=== PATIENT | male | born 1950 | race Caucasian/White ===

== ENCOUNTER 2020-06-29 08:07 | Inpatient (IN) | payer BC ==
[~2020-06-29] VITALS: Ht 175.3 cm; Wt 120.0 kg
[2020-06-29] MEDS ORDERED: JANU100T PO (08:21)
[2020-06-29] MEDS ORDERED: BRIM0.2S13 OU (08:21)
[2020-06-29] MEDS ORDERED: METO1TAB7 PO (08:21)
[2020-06-29] MEDS ORDERED: METF10004 PO (08:21)
[2020-06-29] MEDS ORDERED: FURO20TA2 PO (08:21)
[2020-06-29] MEDS ORDERED: DORZ2SOL4 OU (08:21)
--- NOTE | 2020-06-29 09:06 | REP ---
INDICATION: CVA - Nursing interventions must not delay CT. COMPARISON: None. TECHNIQUE: Axial CT images with multiplanar reformations. FINDINGS: No acute bleed or acute large vessel territorial infarct. Ventricles, cisterns and sulci are within normal limits. No mass effect or midline shift. No abnormal fluid collections. Scattered ill-defined hypodensities seen throughout the white matter is most consistent with sequelae of chronic microvascular ischemic disease. Paranasal sinuses and mastoid air cells are clear. IMPRESSION: No acute findings. <Electronically signed by Ilir Joel > 06/29/20 [id number]
[2020-06-29 09:11] LABS: BASO # 0.1 10^3/uL (0.0-0.2); EOS # 0.4 10^3/uL (0.0-0.5); EOS % 5.1 % (0.0-3.0); HEMATOCRIT 43.2 % (42.0-52.0); HEMOGLOBIN 14.2 g/dl (13.5-17.5); LYMPH % 24.1 % (24.0-44.0); MEAN CORPUSCULAR HEMOGLOBIN 29.2 pg (27.0-33.0); MEAN CORPUSCULAR HGB CONC 32.9 g/dl (32.0-36.5); MEAN CORPUSCULAR VOLUME 88.7 fl (80.0-96.0); MONO # 0.6 10^3/uL (0.0-0.8); MONO % 6.7 % (2.0-8.0); NEUTROPHILS # 5.3 10^3/uL (1.5-8.5); NEUTROPHILS % 62.6 % (36.0-66.0); PLATELET COUNT, AUTOMATED 251 10^3/uL (150-450); RED BLOOD COUNT 4.87 10^6/uL (4.30-6.10); WHITE BLOOD COUNT 8.4 10^3/uL (4.0-10.0)
[2020-06-29 11:03] LABS: INR 0.95; PROTHROMBIN TIME 12.9 SECONDS (12.5-14.3)
[2020-06-29 11:36] LABS: ALBUMIN 3.3 GM/DL (3.2-5.2); BILIRUBIN,DIRECT 0.1 MG/DL (0.0-0.2); BILIRUBIN,TOTAL 0.5 MG/DL (0.2-1.0)
--- NOTE | 2020-06-29 12:29 | REP ---
INDICATION: ataxia. COMPARISON: None. TECHNIQUE: Axial T1, T2, FLAIR, gradient echo, and diffusion-weighted MR images of the brain are obtained. FINDINGS: There are scattered punctate foci of restricted diffusion in the bilateral cerebellar hemispheres, greater on the right. No hemorrhage. Ventricles, cisterns and sulci are within normal limits. No mass effect or midline shift. No abnormal fluid collections. Paranasal sinuses and mastoid air cells are clear. IMPRESSION: A number of [id number] infarcts are seen in the cerebellar hemispheres, greater inferiorly and greater on the right. No mass effect or hemorrhage. Findings discussed with Dr. Benites in the emergency department at the time of interpretation. <Electronically signed by Ilir Joel > 06/29/20 [id number]
--- NOTE | 2020-06-29 12:30 | REP ---
INDICATION: ataxia. COMPARISON: None. TECHNIQUE: [id number] MRA of the brain. FINDINGS: The vertebral arteries are attenuated, not seen on the left and only minimally seen on the right. The right vertebral artery gives rise to the basilar artery which is significantly attenuated. applications trainer are present bilaterally. On the right the internal carotid artery narrows as it enters the cavernous sinus. Proximal and distal MCA branches appear unremarkable on the right. A1 segment absent on the right. On the left the internal carotid artery appears somewhat tortuous but patent. The left internal carotid artery, MCA and MCA branches appear unremarkable. A1 segments and ANDRZEJ branches are present on the left. IMPRESSION: Attenuated posterior vasculature, the basilar artery not well demonstrated and the left vertebral artery not well demonstrated. Anterior circulation demonstrates anatomic variation and a stenosis on the right as the internal carotid artery enters the cavernous sinus. Findings discussed with Dr. Benites in the emergency department at the time of interpretation. <Electronically signed by Ilir Joel > 06/29/20 [id number]
[2020-06-29] MEDS ORDERED: ISOVUE-370 76% 100ML VIAL As Ordered ONE (12:55)
[2020-06-29 13:34] LABS: RSV AMPLIFICATION NEGATIVE (NEGATIVE)
[2020-06-29] MEDS ORDERED: ALEV220T22 PO (13:40)
[2020-06-29] MEDS ORDERED: IRBE300T7 PO (13:40)
[2020-06-29] MEDS ORDERED: VITMTA PO (13:40)
[2020-06-29] MEDS ORDERED: **hydrALAZINE HCL** 25 MG TAB PO PRN (14:00)
[2020-06-29] MEDS ORDERED: GLUCOSE 4GM CHEW TABLET PO PRN (14:00)
[2020-06-29] MEDS ORDERED: DEXTROSE 50% 50 ML SYRINGE IV PRN (14:00)
[2020-06-29] MEDS ORDERED: GLUCAGON INJ 1MG VIAL SC PRN (14:00)
--- NOTE | 2020-06-29 14:23 | REP ---
INDICATION: cva. COMPARISON: MRA of the brain, 06/29/2020. TECHNIQUE: Axial CT images with multiplanar reformations with contrast FINDINGS: As noted on CTA of the neck, the posterior circulation is extremely small with atherosclerotic changes of the vertebral arteries as they enter the foramen magnum. The basilar artery is extremely attenuated and camera tuning engineer appear to fill at least in part from the anterior circulation through posterior communicating arteries. The anterior circulation appears unremarkable. Internal carotid arteries, proximal and distal MCA branches, A1 segments and ANDRZEJ branches appear unremarkable. A stenosis of the right internal carotid artery as it enters the cavernous sinus is better illustrated on the MRI study however is demonstrated on the CTA 3D subtracted reconstruction images. IMPRESSION: Extremely attenuated posterior circulation. The vertebral arteries demonstrate atherosclerotic narrowing as they enter the foramen magnum and the basilar artery is extremely attenuated from this level to the basilar tip. camera tuning engineer appear to fill at least in part from the anterior circulation through small P comms. 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 <Electronically signed by Ilir Joel > 06/29/20 [id number]
--- NOTE | 2020-06-29 14:26 | REP ---
INDICATION: CVA COMPARISON: MRA of the brain, 06/29/2020. TECHNIQUE: Axial CT with multiplanar reformations with contrast. FINDINGS: Anterior circulation: On the right, the common and internal carotid arteries are widely patent. On the left, common and internal carotid arteries are widely patent. There is a small amount atherosclerotic calcification at the carotid bifurcation. Posterior circulation: The vertebral arteries are small bilaterally, and there is atherosclerotic change as they enter the foramen magnum. The basilar artery is extremely small and contrast did minimally opacifies the upper portion of the basilar artery. There are trace posterior communication vessels and the signal mechanic are present bilaterally. IMPRESSION: Anterior circulation appears normal. Posterior circulation is severely attenuated, and the basilar artery is minimally visible. There are attenuated P comms bilaterally, may contribute to the filling of the signal mechanic. This may represent a congenital variation now with atherosclerotic disease further narrowing the posterior circulation system. <Electronically signed by Iilr Joel > 06/29/20 [id number]
[2020-06-29] MEDS ORDERED: ACETAMINOPHEN TAB 650MG DOSE (2X325MG) PO PRN (14:35)
--- NOTE | 2020-06-29 15:15 | HPEPDOC ---
General Date of Admission Jun 29, 2020 Date of Service: Jun 29, 2020 Chief Complaint The patient is a 69-year-old male admitted with a reason for visit of Ear Problem. Source: Patient History of Present Illness Mr. Huber is a 69 year old male with diabetes mellitus type 2 and hypertension who presents with stroke like symptoms. Yesterday, he felt okay. That evening, he had ear fullness. He thought it was 2/2 ear wax and took ear drops. Around 5AM, his ears were still full and could not hear, but he had poor balance. It felt like he was drunk and his vision blurred. did not notice any slurred speech. He tried to put on pants, but it was too difficult. They de cided to go to the ED. When he arrived to the ED, his symptoms completely resolved. He had an NIH score of 0. CT head was negative, but MRI demonstrated multiple acute to subacute infarcts in the cerebellar hemispheres. In the ED, CT angio of the head and neck was ordered for description of the severity of the stenosis seen on MRA. Otherwise, when I saw the patient, he denies any fever/chills, chest pain, dyspnea, or abdominal pain. He had a headache after the MRI. Otherwise, while in the ED, he had two episodes of slurred speech and perioral numbness which lasted a few minutes. These events were a few hours apart. On examination, CN 3-12 grossly intact, finger to nose intact, and negative pronator drift. 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 Home Medications Scheduled Brimonidine Tartrate (Brimonidine Tartrate) 0.2% 5ML Drops, 1 DROP OU BID, (Reported) Dorzolamide HCl (Dorzolamide HCl) 2% 10ML Drops, 1 DROP OU BID, (Reported) Furosemide (Furosemide) 20 Mg Tablet, 20 MG PO DAILY, (Reported) Irbesartan (Irbesartan) 300 Mg Tablet, 300 MG PO DAILY, (Reported) Metformin HCl (Metformin HCl) 1,000 Mg Tablet, 1,000 MG PO BID, (Reported) Metoprolol Succinate (Metoprolol Succinate) 50 Mg Tab.er.24h, 50 MG PO QHS, (Reported) Multivitamins (Thera M Plus Tablet) 1 Each Tablet, 1 TAB PO DAILY, (Reported) Naproxen Sodium (Aleve) 220 Mg Tablet, 220 MG PO DAILY, (Reported) Sitagliptin Phosphate (Januvia) 100 Mg Tablet, 100 MG PO QHS, (Reported) Allergies Coded Allergies: Sulfa (Sulfonamide Antibiotics) (Verified Allergy, Unknown, 06/29/20) atorvastatin (Verified Allergy, Unknown, 06/29/20) Past Medical History Medical History 1. Diabetes mellitus type 2 2. Hypertension 3. Arthritis of the knees 4. Glaucoma 5. Cataracts Surgical History 1. Right knee meniscus repair 2. Bilateral cataracts removed Family History Father: History of heart disease Mother: History of diabetes, heart disease Social History * Smoker: former Smoker (Quit in 1998 (22 years ago)) Alcohol: rarely Drugs: denies A-FIB/CHADSVASC A-FIB History Current/History of A-Fib/PAF?: No Review of Systems Constitutional: Denies: Chills, Fever Eyes: Reports: Vision change (Intermittent blurry vision during stroke) ENT: Reports: Head Aches; Denies: Sore Throat Skin: Denies: Rash Pulmonary: Denies: Dyspnea, Cough Cardiovascular: Denies: Chest Pain Gastrointestinal: Denies: Abdominal Pain, Diarrhea, Constipation Genitourinary: Denies: Dysuria Hematologic: Denies: Bruising Neurological: Reports: Other Symptoms (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, right ear still deaf); Denies: Numbness Psych: Denies: Anxiety, Depression Physical Examination General Exam: Positive: Alert, Cooperative Eye Exam: Positive: EOMI; Negative: Sclera icteric ENT Exam: Positive: Atraumatic Neck Exam: Positive: Supple Chest Exam: Positive: Clear to auscultation; Negative: Rales, Rhonchi, Wheezing Heart Exam: Positive: Rate Normal, Regular Rhythm Abdomen Exam: Positive: Normal bowel sounds, Soft; Negative: Tenderness Extremity Exam: Positive: Edema Neuro Exam: Positive: Normal Speech, Cranial Nerves 3-12 NL, Other (finger to nose intact, negative pronator drift) Psych Exam: Positive: Mental status NL, Mood NL Vital Signs Vital Signs Date Time Temp Pulse Resp B/P (MAP) Pulse Ox O2 Delivery O2 Flow Rate FiO2 06/29/20 13:30 70 194/93 (126) 97 Room Air 06/29/20 12:00 18 06/29/20 08:08 97.7 Laboratory Data Labs 24H Laboratory Tests 2 06/29/20 08:37: Immature Granulocyte % (Auto) 0.5, Neutrophils (%) (Auto) 62.6, Lymphocytes (%) (Auto) 24.1, Monocytes (%) (Auto) 6.7, Eosinophils (%) (Auto) 5.1H, Basophils (%) (Auto) 1.0, Neutrophils # (Auto) 5.3, Lymphocytes # (Auto) 2.0, Monocytes # (Auto) 0.6, Eosinophils # (Auto) 0.4, Basophils # (Auto) 0.1, Nucleated Red Blood Cells % (auto) 0.0, Prothrombin Time 12.9, Prothromb Time International Ratio 0.95, Total Bilirubin 0.5, Direct Bilirubin 0.1, Aspartate Amino Transf (AST/SGOT) 31, Alanine Aminotransferase (ALT/SGPT) 43, Alkaline Phosphatase 65, Total Protein 7.0, Albumin 3.3, Albumin/Globulin Ratio 0.9, Lipase 327 06/29/20 08:51: POC Glucose (Misc Panel) 276H, POC Sodium (Misc Panel) 140, POC Potassium (Misc Panel) 4.8, POC Chloride (Misc Panel) 107, POC Total CO2 (Misc Panel) 24.0, POC Blood Urea Nitrogen (Misc Panel 27H, POC Ionized Calcium (Misc Panel) 4.7, POC Creatinine (Misc Panel) 1.0, POC Hematocrit (Misc Panel) 43.0 06/29/20 10:59: Bedside Glucose (Misc Panel) 234H 06/29/20 12:47: Coronavirus (COVID-19)(PCR) NEGATIVE, Influenza Type A (RT-PCR) NEGATIVE, Influenza Type B (RT-PCR) NEGATIVE, Respiratory Syncytial Virus (PCR) NEGATIVE CBC/BMP Laboratory Tests 06/29/20 08:37 Assessment/Plan Mr. Huber is a 69 year old male with diabetes mellitus type 2 and hyp ertension who presents with stroke like symptoms. MRI demonstrates multiple acute to subacute infarcts in the cerebellar hemispheres. CT angio head demonstrates severe stenosis. Patient will be started on antiplatelet agents and statin. Plan / VTE VTE Prophylaxis Ordered?: Yes Plan Plan 1. 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 Tovar. Recommending DAPT -Obtain HbA1c and lipid panel -Obtain echocardiogram with bubble study -Allow for permissive hypertension for 48 hours -PT and ST. Neuro checks -Trial of rosuvastatin 2. Diabetes mellitus -Sliding scale insulin and carbohydrate consistent diet 3. Glaucoma -Continue Brimonidine and Dorzolamide 4. Hypertension -Allowing for permissive hypertension -Hold irbesartan and metoprolol tartrate -Hydralazine PO PRN SBP >160 5. Arthritis -Hold naproxen -Start acetaminophen as needed 6. DVT ppx -SCD and TEDs Disposition: Will need to allow for permissive hypertension for 2 days. HAI ALANIZ DO Jun 29, 2020 15:15
[2020-06-29 16:45] VITALS: BP 177/88
[2020-06-29] MEDS: CLOPIDOGREL 75 MG TAB PO SCH (16:56)
[2020-06-29] MEDS: ASPIRIN 81MG ENTERIC TABLET PO SCH (16:57)
[2020-06-29] MEDS: MULTIVITAMINS/MINERALS THERAP 1 TAB PO SCH (16:57)
[2020-06-29] MEDS: HumaLOG INSULIN (NovoLOG) PER UNIT SC SCH ×2 (18:32→21:21)
[2020-06-29 21:00] VITALS: BP 137/76
[2020-06-29] MEDS: DORZOLAMIDE 2% OPHTH SOLN 10 ML BTL OU SCH (21:00)
[2020-06-29] MEDS: BRIMONIDINE 0.15% OPHTH SOLN 5 ML OU SCH (21:20)
[2020-06-29] MEDS: ROSUVASTATIN 10 MG TAB (CRESTOR) PO SCH (21:21)
[2020-06-29 22:36] VITALS: BP 141/89
[2020-06-29] MEDS ORDERED: LABETALOL 100MG/20ML VIAL IV PRN (23:00)
[2020-06-29] MEDS: NS 1,000 ML IV SCH (23:03)
--- NOTE | 2020-06-29 23:21 | IPNPDOC ---
Text Note Date of Service The patient was seen on 06/29/20. NOTE CODE STROKE 1036 to 1055pm Subjective: A code stroke was called at 2236 as the patient was complaining of dizziness and was found crooked in bed. Upon arrival, patient says he's been feeling dizzy on and off and was feeling dizzy when he called the nurse. Nursing staff reported that his speech was garbled but had quickly improved. Patient was saying that he felt some weakness in his face. Patient had a similar episode while he was down an MRI. A few minutes after our arrival patient did complain of some chest discomfort. Patient's symptoms slowly resolved throughout the time that we were present by the bedside. Patient says he began to feel better and was feeling well about 15 minutes after our arrival. Physical exam: Vitals: Blood pressure 141/89, pulse 85, O2 sat 95% on room air, temperature 90.7 degrees, General: Alert and oriented male patient who was laying in the bed when we walked into the room. Patient was initially anxious appearing however, he soon c almed down as his symptoms resolved. HEENT: Normocephalic, atraumatic, moist mucous membranes. Neck: No lymphadenopathy or thyromegaly Cardiac: Regular rate and rhythm, no murmurs, normal S1, normal S2 Pulm: Clear to auscultation bilaterally. No wheezes, rhonchi, rales Abd: Nondistended, nontender to palpation, normal bowel sounds Ext: No edema bilateral lower extremities Neurological exam: Left-sided facial droop, no tongue deviation, speech was clear. Patient had equal strength in upper and lower extremity bilaterally. Patient reported equal sensation in dermatomes of the face and extremities bilaterally. Cranial nerves II through XII were intact of the left-sided facial droop bilaterally. No pronator drift, cerebellar test were within normal limits. NIH stroke scale was 1 Labs: Patient's blood sugar was 178 Assessment/plan: Patient is a 69-year-old male who initially presented to the hospital with CVA with bilateral infarcts in the cerebellum according to MRI that was performed ea tyson in the day who had an episode of stroke like symptoms that could be resolved. 1. #Labile blood pressure Patient's symptoms quickly resolved after our arrival. Dr. Melissa spoke with Dr. Culver who was the neurologist regional flatbed truck driver who felt that the acute changes were due to drop in the BP. He recommended no further imaging studies and to start IV fluids to maintain the systolic blood pressure between 160 and 180. if the patient's blood pressure remains low, a bolus of 250 mL will be given. Patient will be transferred to the progressive care unit. When necessary IV labetalol has been written for systolic blood pressure greater than 180; dc hydralazine and lasix and order PRN labetalol if SBP is >180. 2. Chest pressure. Patient had an ECG done that did not show any ischemic findings. Cardiac markers have been ordered and those will be followed up with later in the night. Disposition: Patient will be transferred to the progressive care unit for further monitoring and for IV blood pressure medication if necessary. VS,Fishbone, I+O VS, Fishbone, I+O Laboratory Tests 06/29/20 08:37 Vital Signs Date Time Temp Pulse Resp B/P (MAP) Pulse Ox O2 Delivery O2 Flow Rate FiO2 06/29/20 16:45 98.3 76 18 177/88 (117) 96 Room Air GME ATTESTATION GME ATTESTATION My faculty preceptor for this patient encounter was physically present during the encounter and was fully available. All aspects of the patient interview, examination, medical decision making process, and medical care plan development were reviewed and approved by the faculty preceptor. The faculty preceptor is aware and concurs with the plan as stated in the body of this note and will attest to such by his/her cosignature. DIANA WOOD DO Jun 29, 2020 23:21 KRISTIN MELISSA MD Jun 29, 2020 23:51
[2020-06-29 23:25] VITALS: BP 172/82
[2020-06-29 23:26] LABS: TROPONIN I < 0.02 NG/ML (< 0.10)
[2020-06-29 23:30] VITALS: BP 172/82
[2020-06-30] VITALS (8 sets, daily range): BP systolic 145–182; BP diastolic 66–80
[2020-06-30 07:06] LABS: HEMATOCRIT 40.4 % (42.0-52.0); HEMOGLOBIN 13.2 g/dl (13.5-17.5); MEAN CORPUSCULAR HEMOGLOBIN 29.4 pg (27.0-33.0); MEAN CORPUSCULAR HGB CONC 32.7 g/dl (32.0-36.5); PLATELET COUNT, AUTOMATED 226 10^3/uL (150-450); RED BLOOD COUNT 4.49 10^6/uL (4.30-6.10); WHITE BLOOD COUNT 8.7 10^3/uL (4.0-10.0)
[2020-06-30] MEDS ORDERED: ONDANSETRON 4MG/2ML VIAL IV ONE (07:15)
[2020-06-30 07:22] LABS: HEMOGLOBIN A1c 9.7 %
[2020-06-30 07:29] LABS: BLOOD UREA NITROGEN 19 MG/DL (7-18); CALCIUM LEVEL 8.7 MG/DL (8.8-10.2); CARBON DIOXIDE LEVEL 26 MEQ/L (21-32); CHLORIDE LEVEL 108 MEQ/L (98-107); CHOLESTEROL LEVEL 183 MG/DL (<200); CHOLESTEROL RISK RATIO 5.228 (<5); CREATININE FOR GFR 0.98 MG/DL (0.70-1.30); GLOMERULAR FILTRATION RATE > 60.0 (>49); GLUCOSE, FASTING 251 MG/DL (70-100); HDL CHOLESTEROL 35 MG/DL (>40); LDL CHOLESTEROL 108 MG/DL (<100); NON-HDL-C 148 MG/DL; POTASSIUM SERUM 4.4 MEQ/L (3.5-5.1); SODIUM LEVEL 139 MEQ/L (136-145); TRIGLYCERIDES LEVEL 202 MG/DL (<150)
[2020-06-30] MEDS: HumaLOG INSULIN (NovoLOG) PER UNIT SC SCH ×4 (07:58→20:33)
[2020-06-30] MEDS: MULTIVITAMINS/MINERALS THERAP 1 TAB PO SCH (08:00)
[2020-06-30] MEDS: ASPIRIN 81MG ENTERIC TABLET PO SCH (08:00)
[2020-06-30] MEDS: BRIMONIDINE 0.15% OPHTH SOLN 5 ML OU SCH ×2 (08:00→20:33)
[2020-06-30] MEDS: CLOPIDOGREL 75 MG TAB PO SCH (08:00)
[2020-06-30] MEDS ORDERED: FUROSEMIDE 20 MG TAB PO SCH (09:00)
[2020-06-30] MEDS: DORZOLAMIDE 2% OPHTH SOLN 10 ML BTL OU SCH ×2 (11:48→20:33)
[2020-06-30] MEDS: NS 1,000 ML IV SCH ×2 (11:49→20:40)
[2020-06-30 12:08] LABS: PROLACTIN 10.4 NG/ML (2.1-17.7)
--- NOTE | 2020-06-30 12:42 | ECGEPIP ---
[facility] - ED Test Date: 2020-06-29 Pat Name: PETER BUTLER Department: Room: - Gender: Male Rad Technologist: keagan : 1950 Requested By: Katy Nayak Order Number: [id number] Reading MD: Katy Nayak Measurements Intervals [place] Rate: 71 P: 62 IN: 178 QRS: -6 QRSD: 76 T: 4 QT: 394 QTc: 428 Interpretive Statements Normal sinus rhythm Septal infarct , age undetermined NSTTW abnormalities decreased rate 01/26/16 Electronically Signed on 06-30-2020 12:41:50 EDT by Katy Nayak
--- NOTE | 2020-06-30 14:13 | IPNPDOC ---
Subjective Date Seen The patient was seen on 06/30/20. Subjective Chief Complaint/HPI Mr. Huber is a 69 year old male with diabetes mellitus type 2 and hypertension who presents with stroke like symptoms. Overnight, he had return of his neurologic symptoms. Neurology, Dr. Tovar was contacted. His blood pressure may have dropped too much. Plan to keep his blood pressure between 160 to 180 instead. Furosemide discontinued and PRN hydralazine changed to PRN IV labetalol. Otherwise, when I saw him in the morning, he was feeling fatigued. Denies chest pain or dyspnea. Finger to nose intact and strength intact. Objective Physical Examination General Exam: Positive: Alert, Cooperative Eye Exam: Positive: EOMI; Negative: Sclera icteric ENT Exam: Positive: Atraumatic Neck Exam: Positive: Supple Chest Exam: Positive: Clear to auscultation; Negative: Rales, Rhonchi, Wheezing Heart Exam: Positive: Rate Normal, Regular Rhythm Abdomen Exam: Positive: Normal bowel sounds, Soft; Negative: Tenderness Extremity Exam: Positive: Edema Neuro Exam: Positive: Normal Speech, Cranial Nerves 3-12 NL, Other (finger to nose intact, negative pronator drift) Psych Exam: Positive: Mental status NL, Mood NL Assessment /Plan Assessment Mr. Huber is a 69 year old male with diabetes mellitus type 2 and hypertension who presents with stroke like symptoms. MRI demonstrates multiple acute to subacute infarcts in the cerebellar hemispheres. CT angio head demonstrates severe stenosis. Patient will be started on antiplatelet agents and statin. Will maintain for higher SBP. SBP goal between 160 and 180. Plan/VTE VTE Prophylaxis Ordered?: Yes Plan 1. 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 Tovar. Recommending DAPT -HbA1c not well controlled, 9.7 -LDL elevated at 108 -Pending echocardiogram with bubble study -Allow for permissive hypertension for at least 48 hours -PT and ST. Neuro checks -Trial of rosuvastatin 2. Diabetes mellitus -Sliding scale insulin and carbohydrate consistent diet 3. Glaucoma -Continue Brimonidine and Dorzolamide 4. Hypertension -Allowing for permissive hypertension -Hold irbesartan and metoprolol tartrate -Blood pressure goal is now SBP between 160 to 180. On IVF to help achieve goal -PRN IV labetalol for SBP >180 5. Arthritis -Hold naproxen -Start acetaminophen as needed 6. DVT ppx -SCD and TEDs Disposition: Will need to allow for permissive hypertension for at least 2 days. VS, I&O, 24H, Fishbone Vital Signs/I&O Vital Signs Date Time Temp Pulse Resp B/P (MAP) Pulse Ox O2 Delivery O2 Flow Rate FiO2 06/30/20 12:00 96.9 76 18 145/66 (92) 95 Room Air I&O- Last 24 Hours up to 6 AM 06/30/20 06:00 Intake Total 220 ml Output Total 0 ml Balance 220 ml Laboratory Data 24H LABS Laboratory Tests 2 06/29/20 18:08: Bedside Glucose (Misc Panel) 294H 06/29/20 20:16: Bedside Glucose (Misc Panel) 255H 06/29/20 22:41: Bedside Glucose (Misc Panel) 178H 06/29/20 22:53: Troponin I < 0.02, Prolactin 10.4 06/30/20 06:33: Nucleated Red Blood Cells % (auto) 0.0, Anion Gap 5L, Glomerular Filtration Rate > 60.0, Estimated Mean Plasma Glucose 232H, Hemoglobin A1c 9.7, Calcium Level 8.7L, Triglycerides Level 202H, Total Cholesterol 183, LDL Cholesterol 108H, Non-HDL Cholesterol (LDL + VLDL) 148, Total HDL Cholesterol 35L, Cholesterol/HDL Ratio 5.228H 06/30/20 11:38: Bedside Glucose (Misc Panel) 311H CBC/BMP Laboratory Tests 06/30/20 06:33 HAI ALANIZ DO Jun 30, 2020 14:13
[2020-06-30] MEDS: ONDANSETRON 4MG/2ML VIAL IV PRN ×2 (14:36→22:44)
[2020-06-30] MEDS: CALCIUM CARBONATE 500 MG CHEW U/D PO PRN ×2 (17:03→22:44)
[2020-06-30] MEDS: ROSUVASTATIN 10 MG TAB (CRESTOR) PO SCH (20:37)
[2020-07-01] VITALS (7 sets, daily range): BP systolic 150–183; BP diastolic 70–90
[2020-07-01 05:48] LABS: HEMATOCRIT 39.8 % (42.0-52.0); MEAN CORPUSCULAR HEMOGLOBIN 29.2 pg (27.0-33.0); MEAN CORPUSCULAR HGB CONC 32.7 g/dl (32.0-36.5); MEAN CORPUSCULAR VOLUME 89.4 fl (80.0-96.0); PLATELET COUNT, AUTOMATED 236 10^3/uL (150-450); RED BLOOD COUNT 4.45 10^6/uL (4.30-6.10); WHITE BLOOD COUNT 10.1 10^3/uL (4.0-10.0)
[2020-07-01] MEDS: NS 1,000 ML IV SCH (05:56)
[2020-07-01 06:15] LABS: BLOOD UREA NITROGEN 15 MG/DL (7-18); CALCIUM LEVEL 9.7 MG/DL (8.8-10.2); CARBON DIOXIDE LEVEL 26 MEQ/L (21-32); CHLORIDE LEVEL 109 MEQ/L (98-107); CREATININE FOR GFR 0.96 MG/DL (0.70-1.30); GLOMERULAR FILTRATION RATE > 60.0 (>49); GLUCOSE, FASTING 221 MG/DL (70-100); POTASSIUM SERUM 4.4 MEQ/L (3.5-5.1); SODIUM LEVEL 140 MEQ/L (136-145)
[2020-07-01] MEDS: DORZOLAMIDE 2% OPHTH SOLN 10 ML BTL OU SCH ×2 (09:00→20:17)
[2020-07-01] MEDS: BRIMONIDINE 0.15% OPHTH SOLN 5 ML OU SCH ×2 (09:00→20:17)
[2020-07-01] MEDS: CALCIUM CARBONATE 500 MG CHEW U/D PO PRN ×3 (09:00→20:28)
[2020-07-01] MEDS: CLOPIDOGREL 75 MG TAB PO SCH (09:00)
[2020-07-01] MEDS: MULTIVITAMINS/MINERALS THERAP 1 TAB PO SCH (09:00)
[2020-07-01] MEDS: HumaLOG INSULIN (NovoLOG) PER UNIT SC SCH ×4 (09:00→20:18)
[2020-07-01] MEDS: ASPIRIN 81MG ENTERIC TABLET PO SCH (09:00)
--- NOTE | 2020-07-01 09:55 | ECHO ---
DATE OF PROCEDURE: 06/30/2020 Age: 69 Gender: Male Height: 173 cm Weight: 125 kg REFERRING PHYSICIAN: Jay Peraza DO INDICATION: Cerebrovascular accident (CVA). MEASUREMENTS: IVS 1.3 cm LV 4.9 cm LVPW 1.2 cm LA 4.4 cm Aorta 3.2 cm RV 2.7 cm Mitral E wave velocity 103 cm/s Mitral A wave 138 cm/s E prime septal 8.6 cm/s E prime lateral 10.5 cm/s FINDINGS: This study is of very limited technical quality corresponding to patients body habitus. The patient is in sinus rhythm. Left ventricle is normal size. Mild left ventricular hypertrophy is noted. Overall likely normal LV systolic function based on rather limited views. I certainly cannot rule out even substantial wall motion abnormalities. Right ventricle was poorly visualized. Both atria appear at least mildly enlarged. Aortic valve was not well seen. It is sclerotic, but I cannot comment on details of its structure. There are also degenerative abnormalities of the mitral valve with mitral annular calcifications, but visualization was poor and I cannot comment on the leaflet motion and anatomy. Tricuspid valve was also poorly seen. Pulmonic valve was not well visualized at all. No pericardial effusion is noted. Inferior vena cava was not seen. Aortic root is normal. Aortic arch also appears normal. Abdominal aorta was not visualized. Doppler interrogation of the aortic valve reveals trace insufficiency and mild stenosis with mean gradient 15 mmHg. There is also minimal mitral stenosis with mean gradient 4 mmHg and no apparent insufficiency. Right-sided valves were not well visualized and I cannot comment on their function. Mitral inflow pattern and tissue Doppler imaging of the mitral annulus revealed grade 1 diastolic dysfunction. There was an injection of agitated saline through the peripheral vein, but due to the limited nature of imaging I cannot comment on its effect and I am unable to tell whether there was evidence for shunt or not. CONCLUSIONS: 1. Study is of very limited technical quality corresponding to patients body habitus. Underlying sinus rhythm. 2. Normal LV size with mild LVH and probably normal LV systolic function. Grade 1 diastolic dysfunction. 3. Aortic sclerosis resulting in trace insufficiency and mild stenosis. 4. Poorly visualized mitral valve with no significant insufficiency and mild stenosis. 5. Right-sided heart chambers and valves were not well visualized. 6. Unable to estimate central venous pressure and pulmonary artery pressure. 7. Bubble study was of poor quality and I cannot comment whether there is evidence for shunt or not. MTDD
--- NOTE | 2020-07-01 14:20 | IPNPDOC ---
Subjective Date Seen The patient was seen on 07/01/20. Subjective Chief Complaint/HPI Mr. Huber is a 69 year old male with diabetes mellitus type 2 and hypertension who presents with stroke like symptoms. No events last night and no further stroke like symptoms. He worked with physical therapy and they are recommending one more day. Otherwise, he denies chest pain or dyspnea. Objective Physical Examination General Exam: Positive: Alert, Cooperative Eye Exam: Positive: EOMI; Negative: Sclera icteric ENT Exam: Positive: Atraumatic Neck Exam: Positive: Supple Chest Exam: Positive: Clear to auscultation; Negative: Rales, Rhonchi, Wheezing Heart Exam: Positive: Rate Normal, Regular Rhythm Abdomen Exam: Positive: Normal bowel sounds, Soft; Negative: Tenderness Extremity Exam: Positive: Edema Neuro Exam: Positive: Normal Speech, Cranial Nerves 3-12 NL, Other (finger to nose intact, negative pronator drift) Psych Exam: Positive: Mental status NL, Mood NL Assessment /Plan Assessment Mr. Huber is a 69 year old male with diabetes mellitus type 2 and hypertension who presents with stroke like symptoms. MRI demonstrates multiple acute to subacute infarcts in the cerebellar hemispheres. CT angio head demonstrates severe stenosis. Patient will be started on antiplatelet agents and statin. Maintained elevated permissive hypertension with SBP goal between 160 and 180 for 24 to 48 hours. Will decrease goal to 140 to 160 today. Plan/VTE VTE Prophylaxis Ordered?: Yes Plan 1. 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 Tovar. Recommending DAPT -HbA1c not well controlled, 9.7 -LDL elevated at 108 -Pending echocardiogram with bubble study -Allow for permissive hypertension for at least 48 hours. Tapering down BP goals -PT and ST. Neuro checks -Trial of rosuvastatin 2. Diabetes mellitus -Sliding scale insulin and carbohydrate consistent diet 3. Glaucoma -Continue Brimonidine and Dorzolamide 4. Hypertension -Allowing for permissive hypertension -Hold irbesartan and metoprolol tartrate -Tapering blood pressure goals to 140 to 160 -PRN IV labetalol for SBP >160 5. Arthritis -Hold naproxen -Start acetaminophen as needed 6. DVT ppx -SCD and TEDs Disposition: Tapering blood pressure goals to between 140 to 160. Disposition pending PT recommendations. VS, I&O, 24H, Brijesh Vital Signs/I&O Vital Signs Date Time Temp Pulse Resp B/P (MAP) Pulse Ox O2 Delivery O2 Flow Rate FiO2 07/01/20 12:00 97.2 80 18 150/70 (96) 94 Room Air I&O- Last 24 Hours up to 6 AM 07/01/20 06:00 Intake Total 1258 ml Output Total 1 ml Balance 1257 ml Laboratory Data 24H LABS Laboratory Tests 2 06/30/20 16:46: Bedside Glucose (Misc Panel) 225H 06/30/20 20:31: Bedside Glucose (Misc Panel) 186H 07/01/20 05:33: Nucleated Red Blood Cells % (auto) 0.0, Anion Gap 5L, Glomerular Filtration Rate > 60.0, Calcium Level 9.7 07/01/20 12:00: Bedside Glucose (Misc Panel) 219H CBC/BMP Laboratory Tests 07/01/20 05:33 HAI ALANIZ DO Jul 01, 2020 14:20
[2020-07-01] MEDS: ROSUVASTATIN 10 MG TAB (CRESTOR) PO SCH (20:18)
[2020-07-01] MEDS: ONDANSETRON 4MG/2ML VIAL IV PRN (20:28)
[2020-07-01] MEDS ORDERED: METOPROLOL SUCC (TopROL XL) 50MG **XL** TAB PO SCH (21:00)
[2020-07-02] VITALS: BP 172/80
[2020-07-02 04:00] VITALS: BP 178/81
[2020-07-02 05:40] LABS: HEMATOCRIT 39.7 % (42.0-52.0); HEMOGLOBIN 13.2 g/dl (13.5-17.5); MEAN CORPUSCULAR HEMOGLOBIN 29.9 pg (27.0-33.0); MEAN CORPUSCULAR HGB CONC 33.2 g/dl (32.0-36.5); MEAN CORPUSCULAR VOLUME 89.8 fl (80.0-96.0); PLATELET COUNT, AUTOMATED 224 10^3/uL (150-450); RED BLOOD COUNT 4.42 10^6/uL (4.30-6.10); WHITE BLOOD COUNT 9.6 10^3/uL (4.0-10.0)
[2020-07-02 06:00] LABS: BLOOD UREA NITROGEN 14 MG/DL (7-18); CARBON DIOXIDE LEVEL 28 MEQ/L (21-32); CHLORIDE LEVEL 107 MEQ/L (98-107); CREATININE FOR GFR 0.96 MG/DL (0.70-1.30); GLOMERULAR FILTRATION RATE > 60.0 (>49); GLUCOSE, FASTING 199 MG/DL (70-100); POTASSIUM SERUM 4.5 MEQ/L (3.5-5.1); SODIUM LEVEL 140 MEQ/L (136-145)
[2020-07-02] MEDS: HumaLOG INSULIN (NovoLOG) PER UNIT SC SCH (07:30)
[2020-07-02 08:00] VITALS: BP 172/78
[2020-07-02] MEDS: DORZOLAMIDE 2% OPHTH SOLN 10 ML BTL OU SCH (08:20)
[2020-07-02] MEDS: BRIMONIDINE 0.15% OPHTH SOLN 5 ML OU SCH (08:20)
[2020-07-02] MEDS: ASPIRIN 81MG ENTERIC TABLET PO SCH (08:21)
[2020-07-02] MEDS: MULTIVITAMINS/MINERALS THERAP 1 TAB PO SCH (08:21)
[2020-07-02] MEDS: CLOPIDOGREL 75 MG TAB PO SCH (08:21)
[2020-07-02] MEDS: ONDANSETRON 4MG/2ML VIAL IV PRN (08:21)
[2020-07-02] MEDS: CALCIUM CARBONATE 500 MG CHEW U/D PO PRN (08:21)
[2020-07-02] MEDS ORDERED: IRBESARTAN 150MG TAB PO SCH (09:00)
[2020-07-02] MEDS ORDERED: CLOP75TA2 PO (09:14)
[2020-07-02] MEDS ORDERED: ASPI-551 PO (09:14)
--- NOTE | 2020-07-02 19:20 | DS.PDOC ---
Discharge Summary General Date of Admission Jun 29, 2020 at 13:39 Date of Discharge Jul 02, 2020 Discharge Summary PROCEDURES PERFORMED DURING STAY: None ADMITTING DIAGNOSES: 1. 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 Diabetes mellitus 3. Glaucoma 4. Hypertension 5. Arthritis 6. Morbid obesity DISCHARGE DIAGNOSES: 1. 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 Diabetes mellitus 3. Glaucoma 4. Hypertension 5. Arthritis 6. Morbid obesity COMPLICATIONS/CHIEF COMPLAINT: Cva Cerebral Vascular Accident. HISTORY OF PRESENT ILLNESS: Mr. Huber is a 69 year old male with diabetes mellitus type 2 and hypertension who presents with stroke like symptoms. Yesterday, he felt okay. That evening, he had ear fullness. He thought it was 2/2 ear wax and took ear drops. Around 5AM, his ears were still full and could not hear, but he had poor balance. It felt like he was drunk and his vision blurred. did not notice any slurred speech. He tried to put on pants, but it was too difficult. They decided to go to the ED. When he arrived to the ED, his symptoms completely resolved. He had an NIH score of 0. CT head was negative, but MRI demonstrated multiple acute to subacute infarcts in the c erebellar hemispheres. In the ED, CT angio of the head and neck was ordered for description of the severity of the stenosis seen on MRA. Otherwise, when I saw the patient, he denies any fever/chills, chest pain, dyspnea, or abdominal pain. He had a headache after the MRI. Otherwise, while in the ED, he had two episodes of slurred speech and perioral numbness which lasted a few minutes. These events were a few hours apart. On examination, CN 3-12 grossly intact, finger to nose intact, and negative pronator drift. 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 HOSPITAL COURSE: On the first night, patient's strokelike symptoms returned. Symptoms lasted for a short period. Neurology was contacted. Suspected that it was secondary to drop of blood pressure. Instead of systolic blood pressure goal of 140-180, recommended a goal between 160-180. Patient's blood pressure was kept elevated using fluids. Patient did not have any further stroke like symptoms since then. Blood pressures were kept elevated for at least 48 hours and antihypertensives have been restarted. Today patient was feeling well, and he passed physical therapy. He told me his we will stay on the aspirin and Pl avix. He did not like rosuvastatin. He did not feel well on rosuvastatin. His LDL was elevated at 108. He may need to talk to his PCP about another cholesterol medication such as a PCSK9 inhibitor (Repatha). He'll be discharged today. DISCHARGE MEDICATIONS: Please see below. ALLERGIES: Please see below. PHYSICAL EXAMINATION ON DISCHARGE: VITAL SIGNS: Please see below. GENERAL: Comfortable, in no apparent distress. HEENT: Head normocephalic/atraumatic, EOMI, sclera clear. NECK: Supple RESPIRATORY: Lungs clear to auscultation bilaterally, no rales, wheeze or rhonchi. CARDIOVASCULAR: Regular rate and rhythm. ABDOMEN: Soft, nontender, no guarding or rebound tenderness. Normal bowel sounds. MUSCLE SKELETAL: Muscle strength 5/5 in all extremities. NEUROLOGICAL: CN 312 grossly intact PSYCHOLOGICAL: Normal mood and affect LABORATORY DATA: Please see below. IMAGING: Radiologist's interpretation CT head No acute findings. MRI brain A number of [id number] infarcts are seen in the cerebellar hemispheres, greater inferiorly and greater on the right. No mass effect or hemorrhage. MRA head Attenuated posterior vasculature, the basilar artery not well demonstrated and the left vertebral artery not well demonstrated. Anterior circulation demonstrates anatomic variation and a stenosis on the right as the internal carotid artery enters the cavernous sinus. CT angiogram head Extremely attenuated posterior circulation. The vertebral arteries demonstrate atherosclerotic narrowing as they enter the foramen magnum and the basilar artery is extremely attenuated from this level to the basilar tip. vice president of business development appear to fill at least in part from the anterior circulation through small P comms. 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 CT angiogram neck Anterior circulation appears normal. Posterior circulation is severely attenuated, and the basilar artery is minimally visible. There are attenuated P comms bilaterally, may contribute to the filling of the vice president of business development. This may represent a congenital variation now with atherosclerotic disease further narrowing the posterior circulation system. Echocardiogram 1. Study is of very limited technical quality corresponding to patients body habitus. Underlying sinus rhythm. 2. Normal LV size with mild LVH and probably normal LV systolic function. Grade1 diastolic dysfunction. 3. Aortic sclerosis resulting in trace insufficiency and mild stenosis. 4. Poorly visualized mitral valve with no significant insufficiency and mild stenosis. 5. Right-sided heart chambers and valves were not well visualized. 6. Unable to estimate central venous pressure and pulmonary artery pressure. 7. Bubble study was of poor quality and I cannot comment whether there is evidence for shunt or not. PROGNOSIS: Good ACTIVITY: As tolerated. DIET: Consistent carbohydrates DISCHARGE PLAN: Home with home services DISPOSITION: Home Health Service. DISCHARGE INSTRUCTIONS: 1. Follow-up with PCP within a week 2. Request neurology referral from PCP DISCHARGE CONDITION: Stable Total time spent on discharge planning, discharge summary, and med reconciliation: 45 minutes Vital Signs/I&Os Vital Signs Date Time Temp Pulse Resp B/P (MAP) Pulse Ox O2 Delivery O2 Flow Rate FiO2 07/02/20 08:00 97.0 69 18 172/78 (109) 94 Room Air I&O- Last 24 Hours up to 6 AM 07/02/20 06:00 Intake Total 1200 ml Output Total 250 ml Balance 950 ml Laboratory Data Labs 24H Laboratory Tests 2 07/01/20 20:16: Bedside Glucose (Misc Panel) 183H 07/02/20 05:07: Nucleated Red Blood Cells % (auto) 0.0, Anion Gap 5L, Glomerular Filtration Rate > 60.0, Calcium Level 9.0 CBC/BMP Laboratory Tests 07/02/20 05:07 FSBS Laboratory Tests Test 07/01/20 20:16 Range/Units Bedside Glucose (Misc Panel) 183 80-115 MG/DL Discharge Medications Scheduled Aspirin (Aspirin EC) 81 Mg Tablet.dr, 81 MG PO DAILY Brimonidine Tartrate (Brimonidine Tartrate) 0.2% 5ML Drops, 1 DROP OU BID, (Reported) Clopidogrel Bisulfate (Clopidogrel) 75 Mg Tablet, 75 MG PO DAILY Dorzolamide HCl (Dorzolamide HCl) 2% 10ML Drops, 1 DROP OU BID, (Reported) Furosemide (Furosemide) 20 Mg Tablet, 20 MG PO DAILY, (Reported) Irbesartan (Irbesartan) 300 Mg Tablet, 300 MG PO DAILY, (Reported) Metformin HCl (Metformin HCl) 1,000 Mg Tablet, 1,000 MG PO BID, (Reported) Metoprolol Succinate (Metoprolol Succinate) 50 Mg Tab.er.24h, 50 MG PO QHS, (Reported) Multivitamins (Thera M Plus Tablet) 1 Each Tablet, 1 TAB PO DAILY, (Reported) Sitagliptin Phosphate (Januvia) 100 Mg Tablet, 100 MG PO QHS, (Reported) Allergies Coded Allergies: Sulfa (Sulfonamide Antibiotics) (Verified Allergy, Unknown, 06/29/20) atorvastatin (Verified Allergy, Unknown, 06/29/20) HAI ALANIZ DO Jul 02, 2020 19:20
== END 2020-07-02 12:10 | disposition home health service (06) | DRG 45 ==
LOC: M ED 08:07 → M ED INP 13:39 → ENRESERV 15:37 → M MSPAV 16:46 → M PCU 23:18
PROVIDERS: ADMIT Internal Medicine; ATTEND Internal Medicine
DX: I63.543 Cerebral infarction due to unspecified occlusion or stenosis of bilateral cerebellar arteries (principal); E11.65 Type 2 diabetes mellitus with hyperglycemia; I10 Essential (primary) hypertension; E66.01 Morbid (severe) obesity due to excess calories; Z68.41 Body mass index [BMI] 40.0-44.9, adult; M17.0 Bilateral primary osteoarthritis of knee; H40.9 Unspecified glaucoma; Z98.41 Cataract extraction status, right eye; Z98.42 Cataract extraction status, left eye; Z87.891 Personal history of nicotine dependence; Z20.822 Contact with and (suspected) exposure to COVID-19; Z79.84 Long term (current) use of oral hypoglycemic drugs; Z79.899 Other long term (current) drug therapy; Z88.2 Allergy status to sulfonamides; Z88.8 Allergy status to other drugs, medicaments and biological substances